=== PATIENT | male | born 1955 | race Caucasian/White ===

== ENCOUNTER → 2016-11-19 | Outpatient (CLI) | payer BC ==
[~2016-11-19] MED LIST: ADVIN25/60 INH; ASCO1CAP3 PO; ASPI81TA28 PO; CRS10 PO; ENAL1TAB31 PO; IPRA1AER2 INH; METO-551 PO; NITR0.4S UT; OXYC-57 PO; XRL10 PO
--- NOTE | 2016-11-19 08:59 | DIAGNOSTIC IMAGING REPORT ---
(BARIUM SWALLOW) ESOPHAGUS CLINICAL HISTORY: DYSPHAGIAdyspnea COMPARISON STUDY: None FLUOROSCOPY TIME: 1.1 minutes. FINDINGS: Patient initiated swallowing function well. Esophagus shows mild esophageal irritability. There is a small hiatal hernia. There is mild gastroesophageal reflux. Patient ingested the barium tablet easily read IMPRESSION: Mild esophageal irritability and/or spasm. Small hiatal hernia with mild reflux. Electronically signed by: Terrell Denis M.D. 11/19/2016 8:58 AM Dictated Date/Time: 11/19/2016 8:57 AM
== END | disposition home or self-care (01) ==
LOC: C.RAD 08:33
PROVIDERS: ATTEND Internal Medicine
DX: R13.10 Dysphagia, unspecified (principal)

== ENCOUNTER → 2016-12-20 | Outpatient (CLI) | payer BC ==
[2016-12-20 13:00] LABS: BASO % 0.1 %; BASO ABS # 0.01 K/uL (0-0.2); COMPLETE YES; EOS % 0.1 %; HEMATOCRIT 42.4 % (42-52); IG% 0.2 %; LYMPH ABS # 0.94 K/uL (1.2-3.4); MEAN CELL VOLUME 95.7 fL (80-100); MEAN CORPUSCULAR HEMOGLOBIN 33.4 pg (25-34); MEAN CORPUSCULAR HGB CONC 34.9 g/dl (32-36); MONO % 6.6 %; PLATELET COUNT 136 K/uL (130-400); RED BLOOD COUNT 4.43 M/uL (4.7-6.1)
[2016-12-20 14:29] LABS: LYME DISEASE AB IGG NEG (NEG)
[2016-12-20 14:32] LABS: LYME DISEASE AB IGM NEG (NEG)
[2016-12-20 15:38] LABS: ALKALINE PHOSPHATASE 54 U/L (45-117); ALT/SGPT 168 U/L (12-78); AST/SGOT 289 U/L (15-37); BLOOD UREA NITROGEN 12 mg/dl (7-18); BUN/CREATININE RATIO 10.4 (10-20); CALCIUM 8.3 mg/dl (8.5-10.1); CARBON DIOXIDE 28 mmol/L (21-32); CHLORIDE 95 mmol/L (98-107); GLUCOSE 123 mg/dl (70-99); POTASSIUM 4.1 mmol/L (3.5-5.1); SODIUM 131 mmol/L (136-145)
[2016-12-20 15:48] LABS: ALB/GLOB RATIO 0.7 (0.9-2)
== END | disposition home or self-care (01) ==
LOC: C.LABSPEC 12:16
PROVIDERS: ATTEND Internal Medicine
DX: I25.10 Atherosclerotic heart disease of native coronary artery without angina pectoris (principal); I10 Essential (primary) hypertension; R53.83 Other fatigue; R63.4 Abnormal weight loss; J40 Bronchitis, not specified as acute or chronic; M25.50 Pain in unspecified joint; M79.1 Myalgia

== ENCOUNTER → 2016-12-20 | Outpatient (CLI) | payer BC ==
--- NOTE | 2016-12-20 12:05 | DIAGNOSTIC IMAGING REPORT ---
TWO VIEW CHEST CLINICAL HISTORY: Bronchitis. COPD. FINDINGS: PA and lateral chest radiographs are compared to chest x-ray and chest CT dated 03/14/2015. The cardiomediastinal silhouette is unremarkable. There is mild atherosclerotic calcification of the thoracic aorta. Emphysema and chronic interstitial thickening are similar to previous. There is dense consolidation in the right upper lobe typical appearance for pneumonia. The left lung appears clear. No pleural effusion is identified. Bilateral nipple shadows are observed. There is no pneumothorax. The bony thorax appears intact. IMPRESSION: 1. There is dense right upper lobe consolidation typical in appearance for pneumonia. Clinical correlation will be required and radiographic follow-up to resolution is recommended. 2. The left lung appears clear. 3. Emphysema. Electronically signed by: Jhonatan Peterson M.D. 12/20/2016 12:04 PM Dictated Date/Time: 12/20/2016 12:01 PM
== END | disposition home or self-care (01) ==
LOC: C.RAD 11:39
PROVIDERS: ATTEND Internal Medicine
DX: J44.9 Chronic obstructive pulmonary disease, unspecified (principal); J40 Bronchitis, not specified as acute or chronic; J43.9 Emphysema, unspecified

== ENCOUNTER → 2016-12-25 | Outpatient (CLI) | payer BC ==
[2016-12-25 15:23] LABS: BASO % 0.3 %; BASO ABS # 0.03 K/uL (0-0.2); COMPLETE YES; EOS % 3.4 %; HEMATOCRIT 41.7 % (42-52); IG% 0.3 %; LYMPH % 15.9 %; LYMPH ABS # 1.65 K/uL (1.2-3.4); MEAN CELL VOLUME 95.9 fL (80-100); MEAN CORPUSCULAR HEMOGLOBIN 32.6 pg (25-34); MEAN CORPUSCULAR HGB CONC 34.1 g/dl (32-36); MEAN PLATELET VOLUME 10.6 fL (7.4-10.4); NEUT % 71.1 %; PLATELET COUNT 271 K/uL (130-400); RED BLOOD COUNT 4.35 M/uL (4.7-6.1); WHITE BLOOD COUNT 10.41 K/uL (4.8-10.8)
[2016-12-25 15:30] LABS: ALT/SGPT 303 U/L (12-78); AST/SGOT 157 U/L (15-37); BLOOD UREA NITROGEN 13 mg/dl (7-18); BUN/CREATININE RATIO 14.3 (10-20); CALCIUM 8.8 mg/dl (8.5-10.1); CARBON DIOXIDE 28 mmol/L (21-32); CHLORIDE 101 mmol/L (98-107); CREATININE 0.91 mg/dl (0.60-1.40); GLUCOSE 124 mg/dl (70-99); SODIUM 138 mmol/L (136-145)
[2016-12-25 15:33] LABS: ALB/GLOB RATIO 0.7 (0.9-2); ALKALINE PHOSPHATASE 101 U/L (45-117)
== END | disposition home or self-care (01) ==
LOC: C.LABSPEC 14:52
PROVIDERS: ATTEND Internal Medicine
DX: J18.9 Pneumonia, unspecified organism (principal); M62.82 Rhabdomyolysis

== ENCOUNTER → 2016-12-25 | Outpatient (CLI) | payer BC ==
--- NOTE | 2016-12-25 16:34 | DIAGNOSTIC IMAGING REPORT ---
CHEST 2 VIEWS ROUTINE CLINICAL HISTORY: PNEUMONIA pneumonia COMPARISON STUDY: 12/20/2016 FINDINGS: Mild improvement of the patient's right upper lobe infiltrate. Improving consolidative change. Moderate residual. Graph left lung remains clear. A small calcified granulomas identified lateral aspect left midlung. IMPRESSION: Improving right upper lobe infiltrate. Moderate residual. Follow-up to complete resolution is suggested. Electronically signed by: Terrell Denis M.D. 12/25/2016 4:33 PM Dictated Date/Time: 12/25/2016 4:32 PM
== END | disposition home or self-care (01) ==
LOC: C.RAD 16:08
PROVIDERS: ATTEND Internal Medicine
DX: J18.9 Pneumonia, unspecified organism (principal)

== ENCOUNTER → 2017-01-08 | Outpatient (CLI) | payer BC ==
--- NOTE | 2017-01-08 16:35 | DIAGNOSTIC IMAGING REPORT ---
ART DOP LOWER EXT BILAT CLINICAL HISTORY: ISCHEMIA RIGHT LEG COMPARISON STUDY: None. FINDINGS: The right common femoral artery is completely occluded proximally with soft plaque. There is large area of calcified plaque within the distal right common femoral artery also resulting in the complete occlusion. However, there is low velocity monophasic waveforms seen throughout the remaining right lower extremity arterial system including the superficial and deep femoral arteries. Normal velocity triphasic waveforms seen throughout the left lower extremity arterial system. The right ankle-brachial index measured between 0.38 and 0.51. The left ankle-brachial index measured between 0.96-1.01. The proximal right external iliac artery is patent. The distal right external iliac is also occluded. IMPRESSION: 1. Occlusion of the distal right external iliac artery and common femoral artery with reconstitution at the right superficial/deep femoral arteries. 2. Normal left lower extremity arterial Doppler study. Electronically signed by: Levi Wheat M.D. 01/08/2017 4:48 PM Dictated Date/Time: 01/08/2017 4:31 PM
== END | disposition home or self-care (01) ==
LOC: C.ULTR 14:33
PROVIDERS: ATTEND Internal Medicine
DX: I99.8 Other disorder of circulatory system (principal); I74.5 Embolism and thrombosis of iliac artery; I74.8 Embolism and thrombosis of other arteries

== ENCOUNTER → 2017-01-14 | Outpatient (CLI) | payer BC ==
[~2017-01-14] MED LIST changes: +OPTIRAY 320 IV PRN
--- NOTE | 2017-01-14 15:25 | DIAGNOSTIC IMAGING REPORT ---
CT ANGIOGRAPHY OF THE ABDOMEN AND PELVIS WITH AND WITHOUT CONTRAST CLINICAL HISTORY: Atherosclerosis. Right iliac occlusion. TECHNIQUE: Unenhanced and arterial phase imaging of the abdomen and pelvis was performed. Injection of 119 cc of Optiray 320 IV was uneventful. Sagittal and coronal reconstructions were viewed as well as maximal intensity projections on an independent 3-D workstation. COMPARISON STUDY: CT of the abdomen and pelvis March 14, 2015 and lower extremity arterial Doppler ultrasound January 08, 2017. FINDINGS: Visualized portions of the lower chest demonstrate numerous small segmental pulmonary emboli within both lower lobes. Arterial phase images of the liver, spleen, adrenal glands, kidneys and pancreas are unremarkable. There is no evidence for a bowel obstruction. There is extensive atherosclerotic plaque of the aortoiliac system. Note is made of a 3.6 x 3.2 cm infrarenal abdominal aortic aneurysm which has slightly increased in size since CT of March 14, 2015 when it measured 3.4 x 3 cm. There is extensive eccentric mural plaque. Aneurysmal dilatation begins 3.2 cm inferior to the left renal artery. Aneurysmal dilatation extends for 4.4 cm. The bilateral renal arteries and major mesenteric vessels are patent. There is 40% stenosis of the proximal right common iliac artery. There is occlusion of the proximal right external iliac artery with reconstitution at the level of the proximal right superficial femoral artery. There is 40% narrowing of the left external iliac artery. Skeletal structures are unremarkable. The roof mechanic tomogram demonstrates right upper lobe airspace opacity which appears diminished since exam of December 25, 2016 and favors resolving pneumonia. IMPRESSION: 1. Multiple segmental pulmonary emboli within visualized portions of the bilateral lower lobes. 2. 3.6 x 3.2 cm infrarenal abdominal aortic aneurysm which has only slightly increased in size since CT of March 14, 2015. 3. Occlusion of the proximal right external iliac artery with reconstitution at the level of the proximal right superficial femoral artery. 4. 40% narrowing of the proximal right common iliac artery and 40% narrowing of the left external iliac artery. Electronically signed by: Cristian Winslow M.D. 01/14/2017 3:24 PM Dictated Date/Time: 01/14/2017 3:04 PM
== END | disposition home or self-care (01) ==
LOC: C.CTS 14:08
PROVIDERS: ATTEND Surgery Vascular Surgery
DX: I70.211 Atherosclerosis of native arteries of extremities with intermittent claudication, right leg (principal); I26.99 Other pulmonary embolism without acute cor pulmonale; I71.4 Abdominal aortic aneurysm, without rupture

== ENCOUNTER → 2017-01-14 | Outpatient (CLI) | payer BC ==
[~2017-01-14] MED LIST changes: -OPTIRAY 320 IV PRN
[2017-01-14 19:06] LABS: BASO % 0.3 %; BASO ABS # 0.03 K/uL (0-0.2); COMPLETE YES; EOS % 2.1 %; HEMATOCRIT 42.3 % (42-52); IG% 0.7 %; LYMPH % 32.6 %; LYMPH ABS # 3.42 K/uL (1.2-3.4); MEAN CORPUSCULAR HEMOGLOBIN 32.8 pg (25-34); MEAN CORPUSCULAR HGB CONC 33.8 g/dl (32-36); MONO % 7.4 %; NEUT % 56.9 %; PLATELET COUNT 218 K/uL (130-400); RED BLOOD COUNT 4.36 M/uL (4.7-6.1)
[2017-01-14 19:18] LABS: PROTHROMBIN TIME (PATIENT) 10.7 SECONDS (9.0-12.0)
== END | disposition home or self-care (01) ==
LOC: C.LABSPEC 16:10
PROVIDERS: ATTEND Internal Medicine
DX: I26.99 Other pulmonary embolism without acute cor pulmonale (principal)

== ENCOUNTER → 2017-01-15 | Outpatient (CLI) | payer BC ==
[~2017-01-15] MED LIST changes: -OXYC-57 PO
--- NOTE | 2017-01-15 10:38 | DIAGNOSTIC IMAGING REPORT ---
BILATERAL LOWER EXTREMITY VENOUS DOPPLER CLINICAL HISTORY: BILATERAL PULMONARY EMBOLI COMPARISON STUDY: No previous studies for comparison. TECHNIQUE: Sonography of the deep venous system of the bilateral lower extremities was performed. Compression and augmentation were evaluated. FINDINGS: The right common femoral and superficial femoral veins are patent. There is deep venous thrombus within the right popliteal vein. There is no deep venous thrombus within the left lower extremity. IMPRESSION: 1. Nonocclusive deep venous thrombus within the right popliteal vein. 2. No deep venous thrombus within the left lower extremity. Electronically signed by: Cristian Winslow M.D. 01/15/2017 10:37 AM Dictated Date/Time: 01/15/2017 10:35 AM
== END | disposition home or self-care (01) ==
LOC: C.ULTR 09:58
PROVIDERS: ATTEND Internal Medicine
DX: I26.99 Other pulmonary embolism without acute cor pulmonale (principal); I82.431 Acute embolism and thrombosis of right popliteal vein

== ENCOUNTER 2017-01-23 06:18 | Observation (INO) | payer BC ==
[2017-01-17 10:22] VITALS: BMI 24.0
[~2017-01-23] VITALS: Ht 167.6 cm; Wt 69.5 kg
[2017-01-23] VITALS (8 sets, daily range): BP systolic 107–126; BP diastolic 71–85; PULSE 67–94; TEMP 36.4–37; O2SAT 94–98; Ht 167.6 cm; Wt 69.5 kg
[~2017-01-23 06:18] MED LIST changes: +CEFAZOLIN 1000MG/55 ML D5W IV SCH; +LACTATED RINGER'S 1000ML 1,000 ML IV SCH; +SODIUM CHLORIDE 0.9% 1000ML 1,000 ML IV SCH
--- NOTE | 2017-01-23 06:20 | History and Physical ---
History & Physical Date of Service Jan 23, 2017. History & Physical CC: Severe right leg claudication HPI: Mr. Filiberto Gardiner is a 61-year-old gentleman with a history of COPD, hypertension, hyperlipidemia, coronary artery disease status post NSTEMI, hepatitis C, who is being seen for evaluation of peripheral arterial disease. Mr. Gardiner says that he had pneumonia several weeks ago and was very inactive for approximately 2 weeks. When he was able to be more active again, he began experiencing pain in both of his legs. He attributed his left leg discomfort to graves splints, which has since resolved. Concerning his right lower extremity , he says that he has burning and cramping in his right thigh with approximately 10 minutes of activity. This is extremely bothersome to him. He had difficulty mowing his lawn, which he says is flat and is only able to mow the lawn for approximately 10 minutes. He must stop and rest for 15-20 minutes before his symptoms resolve. He says that this has been going on for approximately 2 weeks. He says that he additionally has pain in his right foot , but is unsure if this is better or worse at night when he is lying flat. He has not had to keep his leg dependent. He says that he is very active at baseline and that this pain in his right leg is extremely bothersome to him. He is, otherwise, feeling well and denies chest pain, shortness of breath, nausea, vomiting, fevers, chills, night sweats. REVIEW OF SYSTEMS: A 12-point review of systems was completed with pertinent positives and negatives as per above. The patient has no known drug allergies. PAST MEDICAL HISTORY: Significant for COPD, hypertension, hyperlipidemia, hepatitis C status post interferon therapy, coronary artery disease status post NSTEMI. PAST SURGICAL HISTORY: Significant for tonsillectomy, cardiac catheterization without stent placement. FAMILY HISTORY: Significant for abdominal aortic aneurysm in the patient's father and coronary artery disease. SOCIAL HISTORY: Significant for smoking. The patient continues to smoke a pack and a half per day for the past 40 years. He does drink alcohol approximately 12 drinks per week. He works in construction. MEDICATIONS: Reviewed and include Combivent, vitamin C, aspirin 81 mg, enalapril, Advair, metoprolol, nitroglycerin sublingual, rosuvastatin. PHYSICAL EXAMINATION: The patient's heart rate is 81 and blood pressure in the left arm is 96/64 and right arm is 100/64. He is awake, alert and appears slightly anxious. He is in no acute distress. His breathing is nonlabored. His neck is supple and trachea is midline. His abdomen is soft, nontender, nondistended. I did not appreciate any pulsatile masses in his abdomen. Bilateral lower extremities are warm and pink. He has a palpable left femoral pulse. I was unable to palpate a right femoral pulse. He has dopplerable AT, PT and peroneal signals on the right foot, which are biphasic to monophasic. The left dorsalis pedis pulse is palpable. Imp Right iliac and common femoral artery occlusion. Plan: Patient is admitted for revascularization of the right lower extremity. I have discussed the risks options and benefits of the procedure with the patient. The patient understands the risks options and benefits and agrees to the procedure.
[2017-01-23] MEDS ORDERED: MIDAZOLAM HCL 1 MG/ML 2ML VIAL ONE (07:01)
[2017-01-23] MEDS ORDERED: KETAMINE HCL INJ 50 MG/ML 10 ML VIAL ONE (07:01)
[2017-01-23] MEDS ORDERED: FENTANYL CITRATE INJ 50 MCG/1 ML 2 ML VIAL ONE ×2 (07:01→10:01)
--- NOTE | 2017-01-23 07:05 | DIAGNOSTIC IMAGING REPORT ---
CHEST 2 VIEWS ROUTINE CLINICAL HISTORY: PREOPERATIVE EXAM COMPARISON STUDY: 12/25/2016 FINDINGS: The cardiac and mediastinal contours remain stable. There are persistent but improving right upper lobe airspace opacities. The left lung is clear. There is no failure. There are no pleural effusions. There is a stable rounded opacity within left midlung zone, likely representing a nipple shadow or granuloma.[ IMPRESSION: Persistent but improving right upper lobe airspace opacities. Continued radiographic follow-up is recommended. Electronically signed by: Asim Cosme M.D. 01/23/2017 7:04 AM Dictated Date/Time: 01/23/2017 7:02 AM
[2017-01-23] MEDS ORDERED: LIDOCAINE HCL 1% 20 ML VIAL ONE (07:13)
[2017-01-23] MEDS ORDERED: THROMBIN 5000 UNITS KIT ONE (07:14)
[2017-01-23] MEDS ORDERED: GELATIN SPONGE SZ 100 ONE (07:15)
--- NOTE | 2017-01-23 07:15 | History & Physical Bridge Note ---
H&P Re-Evaluation Bridge Note: I have examined the patient, reviewed the History & Physical and in the interval since the performance of the History & Physical I have noted the following changes of clinical significance: No changes noted
[2017-01-23] MEDS ORDERED: BUPIVACAINE/EPINEPHRINE 0.5% MPF 1:200,000 10 ML VIAL ONE (07:16)
[2017-01-23] MEDS ORDERED: CEFAZOLIN SOD 1 GM VIAL ONE (07:16)
[2017-01-23] MEDS ORDERED: PAPAVERINE HCL INJ 30 MG/ML 2 ML VIAL ONE (07:17)
[2017-01-23] MEDS ORDERED: HEPARIN SOD (PORCINE) 5000 UNIT/ML 1 ML VIAL ONE (07:20)
[2017-01-23 07:27] LABS: BUN/CREATININE RATIO 20.3 (10-20); CALCIUM 9.3 mg/dl (8.5-10.1); CREATININE 0.72 mg/dl (0.60-1.40); POTASSIUM 4.6 mmol/L (3.5-5.1)
[2017-01-23] MEDS ORDERED: HEPARIN SOD (PORCINE) 1000 UNIT/ML 10 ML VIAL ONE ×2 (07:28→09:04)
[2017-01-23] MEDS ORDERED: PROPOFOL IV EMULSION 10 MG/ML 20 ML VIAL IV ONE (08:57)
[2017-01-23] MEDS ORDERED: DEXAMETHASONE SOD INJ 4 MG/ML VIAL ONE (08:57)
[2017-01-23] MEDS ORDERED: CISATRACURIUM BESYLATE IV SOLN 2 MG/ML 10 ML VIAL ONE (08:57)
[2017-01-23] MEDS ORDERED: ONDANSETRON INJ 2 MG/ML 2 ML VIAL ONE (08:57)
[2017-01-23] MEDS ORDERED: EpHEDrine SULFATE 50MG/5ML SYR ONE (08:57)
[2017-01-23] MEDS ORDERED: LIDOCAINE HCL 2% 2 ML VIAL (20MG/ML) ONE (08:57)
[2017-01-23] MEDS ORDERED: GLYCOPYRROLATE INJ 0.2 MG/ML VIAL ONE (09:00)
[2017-01-23] MEDS ORDERED: NEOSTIGMINE METHYLSULFATE 5 MG/5 ML SYR ONE (09:00)
[2017-01-23] MEDS ORDERED: PHENYLEPHRINE HCL INJ 10 MG/ML VIAL ONE (10:02)
[2017-01-23] MEDS ORDERED: D5W AND 1/2NSS 1,000 ML IV SCH (10:56)
--- NOTE | 2017-01-23 10:59 | [facility] Post Operative Brief Note ---
Immediate Operative Summary Operative Date Jan 23, 2017. Pre-Operative Diagnosis Right iliac and femoral artery occlusion Post-Operative Diagnosis Right iliac and femoral artery occlusion Procedure(s) Performed Bilateral Iliac Stent, Mechanical Artherectomy Right External Iliac Artery, Endarterectomy and Patch of Right Common Femoral Artery Surgeon Navneet Director Field Services Surgeon(s) none Estimated Blood Loss 100CC Findings good pedal dopplers on right Specimens None per surgeon Anesthesia Gen Complication(s) None Disposition Recovery Room / PACU
[2017-01-23] MEDS ORDERED: IPRATROPIUM BROMIDE/ALBUTEROL respimat INH INH PRN (11:00)
[2017-01-23] MEDS ORDERED: MoRPHine SULFATE 2 MG/ML CARP IV PRN (11:00)
[2017-01-23] MEDS ORDERED: ACETAMINOPHEN 325 MG TAB PO PRN (11:00)
[2017-01-23] MEDS ORDERED: NITROGLYCERIN 0.4 MG SL PER TAB CHARGE UT PRN (11:00)
[2017-01-23] MEDS ORDERED: ONDANSETRON INJ 2 MG/ML 2 ML VIAL IV PRN ×2 (11:00→11:30)
[2017-01-23] MEDS ORDERED: IV FLUIDS COMPLETED PRN (11:15)
[2017-01-23] MEDS ORDERED: ESMOLOL HCL 10 MG/ML 10 ML VIAL ONE (11:22)
[2017-01-23] MEDS ORDERED: LABETALOL HCL IV 5 MG/ML 20ML IV ONE (11:22)
[2017-01-23 11:30] LABS: BASO % 0.1 %; BASO ABS # 0.01 K/uL (0-0.2); COMPLETE YES; EOS % 0.6 %; HEMATOCRIT 38.9 % (42-52); IG% 0.6 %; LYMPH % 8.6 %; LYMPH ABS # 1.19 K/uL (1.2-3.4); MEAN CELL VOLUME 95.8 fL (80-100); MEAN CORPUSCULAR HGB CONC 33.4 g/dl (32-36); MEAN PLATELET VOLUME 8.9 fL (7.4-10.4); MONO % 1.3 %; NEUT % 88.8 %; PLATELET COUNT 216 K/uL (130-400); RED BLOOD COUNT 4.06 M/uL (4.7-6.1); WHITE BLOOD COUNT 13.85 K/uL (4.8-10.8)
[2017-01-23] MEDS ORDERED: HYDROmorphone INJ 1 MG/ML SYR IV PRN (11:30)
[2017-01-23] MEDS ORDERED: FLUMAZENIL 0.1 MG/1 ML 10 ML VIAL IV PRN (11:30)
[2017-01-23] MEDS ORDERED: EpHEDrine SULFATE INJ 50 MG/ML AMP IV PRN (11:30)
[2017-01-23] MEDS ORDERED: ATROPINE SULFATE 0.1 MG/ML 5ML SYR IV PRN (11:30)
[2017-01-23] MEDS ORDERED: PROMETHAZINE HCL INJ 12.5 MG in SODIUM CHLORIDE 0.9% 50ML 50 ML IV PRN (11:30)
[2017-01-23] MEDS ORDERED: NALOXONE HCL 0.4 MG/1 ML VIAL/CARP IV PRN (11:30)
[2017-01-23] MEDS ORDERED: LABETALOL HCL IV 5 MG/ML 20ML IV PRN (11:30)
--- NOTE | 2017-01-23 11:30 | [facility] Operative Report ---
Operative Report Operative Date Jan 23, 2017. Pre-Operative Diagnosis Right external iliac and femoral artery occlusion Post-Operative Diagnosis Same Procedure(s) Performed Bilateral common iliac stent insertion Right external iliac mechanical atherectomy Right common femoral endarterectomy with patch Mechanical closure right common femoral artery Bilateral cannulation of the aorta Surgeon Navneet Speech Professor Surgeon(s) none Estimated Blood Loss 100CC Findings Occluded right ext iliac and common femoral arteries Specimens None per surgeon Anesthesia Gen Complication(s) None Disposition Recovery Room / PACU Description of Procedure Procedure indications: This patient's a 61-year-old male whose developed severe claudication of the right lower extremity. This is limiting his daily activity and is severe at short distances. CT scan done showed a right external iliac and common femoral artery occlusions. It was recommended that we attempt an endovascular approach to treat the right external iliac artery and possibly a femoral patch angioplasty and endarterectomy. If this does not work then we would go ahead and do a cross femoral bypass. I have discussed the risks options and benefits of the procedure with the patient. The patient understands the risks options and benefits and agrees to the procedure. Procedure: Patient was taken to operating room and placed in the supine position. After both groins are prepped and draped in a sterile manner, a percutaneous puncture was made of the left common femoral artery. An 035 wire was then inserted. A 5 Citizen [place] sheath was inserted over the wire. Next an incision was made in the right groin. This was carried down to where the common femoral arteries were identified. Dissection was carried down beyond the bifurcation of the common femoral artery and to the inguinal ligament. The common femoral artery itself had no pulse and was extremely hard. Once the common femoral artery was exposed and a puncture was made of the common femoral artery, a 6 Citizen [place] sheath was inserted over the wire. Using an 035 wire the right external iliac artery was actually crossed . The wire passed into into the aorta without too much difficulty. A 5 [place] sheath was inserted over the wire. The wire was removed and an angled guide catheter inserted. A hand injection was done showing the catheter to be true lumen in the abdominal aorta. There was a mild stenosis of the left common iliac artery and moderate stenosis of the right common iliac artery. There is also a complete occlusion of the right external iliac artery and common femoral artery. The sheath of the left groin was then exchanged for a 6 [place] sheath. A wire was then inserted through the left femoral artery and passed into the aorta. A snare catheter was then inserted over the wire. A snare was then inserted. The wire from the right side was snared and brought out through the left groin. This was an O35 wire. We then passed an 8 [place] destination sheath over the wire and used the wire as a rail. The destination was passed to the right common iliac artery. We then exchanged the 035 wire to an 014 jet wire. A 2.4 mechanical atherectomy Jetstream device was then used. The jetstream was then passed over the 014 wire to the right external iliac artery origin. Two passes were done, one with blades down and one with blades up. There was a good result seen in the external iliac artery and the proximal common femoral artery. It was then thought that we could do a common femoral artery endarterectomy with a patch angioplasty. We then inserted the stents into the common iliac arteries. We placed a 9 x 29 and the left common iliac and a 9 x 39 the right common iliac artery. A hand infection showed a crimp in the right common iliac stent at the distal end. Multiple attempts to try to get a wire through this so we can pass a balloon to open up the stent further cannot be done. We then were going to try to cover the stent with two covered stents to exclude the stent and crushed against the wall. A wire was then inserted through the right groin. This was passed up along the side of the previously placed stent. At that point we passed a 9 x 30 Icast stent. The stent was then expanded crushing the original stent against the wall of the artery. We then placed a 10 x 5cm Viabahn stent beyond this and overlapping Icast stent. This was then ballooned with a 12 mm balloon. Good results were seen. There is good flow through the external and internal iliac arteries. That point we removed the destination over a wire and exchanged to a short 8 [place] short sheath. The right superficial femoral and profunda femoral arteries were clamped. A clamp was then placed on the distal external iliac artery below the inguinal ligament and the above the area that had a pulse present. A longitudinal arteriotomy was then made in the common femoral artery. There was a large amount of plaque creating a complete occlusion of the common femoral artery. Using the endarterectomy spatula, the endarterectomy was started at the proximal part of the arteriotomy. The plaque was removed in its entirety. The origins of the superficial femoral and profunda were patent. The arteriotomy extended down beyond the origin of the superficial femoral artery for approximately 1 cm. A #4 saundra catheter was passed proximally into the external iliac artery. There was no clot present and excellent flow was seen when it was flushed. An AcuSeal patch was then used to patch the arteriotomy. This was closed in usual fashion using a running CV 6 Hymera-Ian suture in usual vascular fashion. Prior to completing the closure backbleeding and forebleeding was allowed to occur. The final few sutures were placed and securely tied. The clamps were removed from the profunda and common femoral artery finally the superficial femoral artery clamp was removed. Acceptable hemostasis was then noted. There was one bleeding site seen and this was controlled with an interrupted CV 6 Hymera-Ian suture. Adequate hemostasis was then noted. The wound was inspected and hemostasis was seen of the wound. The wound was then closed in usual fashion using running 2-0 Vicryl suture for the femoral sheath and a 3-0 Vicryl sutures for the subcutaneous layer. Radiant were used for the skin. Sterile dressings were applied to the wound. Patient had excellent Doppler signals in both the dorsalis pedis and posterior tibial arteries at the end of the procedure. Sponge and needle count were correct at the end of the case. The patient left the operating room in satisfactory condition tolerated procedure well. I attest to the content of the Intraoperative Record and any orders documented therein. Any exceptions are noted below.
[2017-01-23] MEDS ORDERED: HYDROmorphone INJ 1 MG/ML SYR ONE (11:35)
--- NOTE | 2017-01-23 11:58 | Anesthesiology Progress Note ---
Anesthesia Post Op Note Date & Time Jan 23, 2017 at 11:56 Vital Signs Pain Intensity: 6.0 Vital Signs Past 12 Hours Date Time Temp Pulse Resp B/P (MAP) Pulse Ox O2 Delivery O2 Flow Rate FiO2 01/23/17 11:40 88 18 98/66 95 Oxymask 3 101/57 01/23/17 11:30 83 18 102/67 95 Oxymask 3 113/58 01/23/17 11:20 79 18 103/69 96 Oxymask 10 109/58 01/23/17 11:10 83 16 104/72 96 Oxymask 10 113/60 01/23/17 11:03 36.7 83 16 108/66 97 Oxymask 10 01/23/17 06:41 37 72 20 107/75 98 Room Air Notes Mental Status: alert / awake / arousable, participated in evaluation Pt Amnestic to Procedure: Yes Nausea / Vomiting: adequately controlled Pain: adequately controlled Airway Patency, RR, SpO2: stable & adequate BP & HR: stable & adequate Hydration State: stable & adequate Anesthetic Complications: no major complications apparent
[2017-01-23] MEDS ORDERED: MoRPHine SULFATE 4 MG/ML 1 ML CARP\\VIAL IV PRN (13:30)
[2017-01-23] MEDS: OXYCODONE/ACETAMINOPHEN 5-325 TAB PO PRN ×2 (16:19→19:46)
[2017-01-23] MEDS: CEFAZOLIN IV 1,000 MG in DEXTROSE 5% 50ML 50 ML IV SCH ×2 (16:35→23:45)
[2017-01-23] MEDS: RIVAROXABAN TAB 15 MG TAB PO SCH (16:35)
[2017-01-23] MEDS: FLUTICASONE/SALMETEROL 250/50 (ADVAIR) 14 PUFF/1 INHALER INH SCH (19:46)
[2017-01-23] MEDS: METOPROLOL TARTRATE 50 MG TAB PO SCH (19:47)
[2017-01-23] MEDS ORDERED: ROSUVASTATIN CALCIUM 10 MG TAB PO SCH (21:00)
[2017-01-24 07:06] LABS: BASO % 0.1 %; BASO ABS # 0.01 K/uL (0-0.2); COMPLETE YES; EOS % 0.1 %; HEMATOCRIT 36.2 % (42-52); IG% 0.3 %; LYMPH % 14.9 %; LYMPH ABS # 2.38 K/uL (1.2-3.4); MEAN CORPUSCULAR HEMOGLOBIN 32.4 pg (25-34); MEAN CORPUSCULAR HGB CONC 33.7 g/dl (32-36); MEAN PLATELET VOLUME 8.8 fL (7.4-10.4); MONO % 8.8 %; NEUT % 75.8 %; PLATELET COUNT 199 K/uL (130-400); RED BLOOD COUNT 3.77 M/uL (4.7-6.1); WHITE BLOOD COUNT 15.98 K/uL (4.8-10.8)
[2017-01-24] MEDS: FLUTICASONE/SALMETEROL 250/50 (ADVAIR) 14 PUFF/1 INHALER INH SCH (07:18)
[2017-01-24] MEDS: RIVAROXABAN TAB 15 MG TAB PO SCH (07:18)
[2017-01-24] MEDS: METOPROLOL TARTRATE 50 MG TAB PO SCH (07:18)
[2017-01-24] MEDS: OXYCODONE/ACETAMINOPHEN 5-325 TAB PO PRN (07:23)
[2017-01-24 07:36] LABS: CALCIUM 8.7 mg/dl (8.5-10.1); CREATININE 0.77 mg/dl (0.60-1.40)
[2017-01-24 07:38] VITALS: BP 155/84; PULSE 75; TEMP 36.8; O2SAT 95
[2017-01-24 08:32] VITALS: O2SAT 95
[2017-01-24] MEDS ORDERED: ENALAPRIL MALEATE 10 MG TAB PO SCH (09:00)
[2017-01-24] MEDS ORDERED: ASPIRIN 81 MG ECTAB PO SCH (09:00)
[2017-01-24] MEDS ORDERED: ASCORBIC ACID 500 MG TAB PO SCH (09:00)
[2017-01-24 10:29] VITALS: BP 102/64; PULSE 66; O2SAT 95
[2017-01-24] MEDS ORDERED: PANTOprazole INJ 40 MG in SYRINGE 0 ML IV SCH (11:00)
[2017-01-24 11:08] VITALS: BP 104/69; PULSE 65; TEMP 36.8; O2SAT 96
[2017-01-24 12:10] VITALS: O2SAT 95
--- NOTE | 2017-01-24 13:53 | Progress Note ---
Progress Note Date of Service: Jan 24, 2017. Subjective No complaints. Ambulating without difficulty. Objective Vital Signs Vital Signs Past 12 Hours Date Time Temp Pulse Resp B/P (MAP) Pulse Ox O2 Delivery O2 Flow Rate FiO2 01/24/17 12:10 95 Room Air 01/24/17 11:08 36.8 65 20 104/69 (81) 96 Room Air 01/24/17 10:29 66 95 01/24/17 08:32 95 Room Air 01/24/17 07:38 36.8 75 20 155/84 (107) 95 Room Air 01/24/17 04:00 Room Air Exam VSS Afebrile Groin incision dry and clean. Left groin puncture site without complications Palpable DP and PT pulse on right Voided after pablo out Laboratory and Microbiology Results Past 24 Hours Test 01/24/17 06:49 Range/Units White Blood Count 15.98 4.8-10.8 K/uL Red Blood Count 3.77 4.7-6.1 M/uL Hemoglobin 12.2 14.0-18.0 g/dL Hematocrit 36.2 42-52 % Mean Corpuscular Volume 96.0 80-100 fL Mean Corpuscular Hemoglobin 32.4 25-34 pg Mean Corpuscular Hemoglobin Concent 33.7 32-36 g/dl Platelet Count 199 130-400 K/uL Mean Platelet Volume 8.8 7.4-10.4 fL Neutrophils (%) (Auto) 75.8 % Lymphocytes (%) (Auto) 14.9 % Monocytes (%) (Auto) 8.8 % Eosinophils (%) (Auto) 0.1 % Basophils (%) (Auto) 0.1 % Neutrophils # (Auto) 12.11 1.4-6.5 K/uL Lymphocytes # (Auto) 2.38 1.2-3.4 K/uL Monocytes # (Auto) 1.41 0.11-0.59 K/uL Eosinophils # (Auto) 0.02 0-0.5 K/uL Basophils # (Auto) 0.01 0-0.2 K/uL RDW Standard Deviation 48.2 36.4-46.3 fL RDW Coefficient of Variation 13.7 11.5-14.5 % Immature Granulocyte % (Auto) 0.3 % Immature Granulocyte # (Auto) 0.05 0.00-0.02 K/uL Sodium Level 140 136-145 mmol/L Potassium Level 4.0 3.5-5.1 mmol/L Chloride Level 108 98-107 mmol/L Carbon Dioxide Level 25 21-32 mmol/L Anion Gap 7.0 3-11 mmol/L Blood Urea Nitrogen 12 7-18 mg/dl Creatinine 0.77 0.60-1.40 mg/dl Est Creatinine Clear Calc Drug Dose 93.2 ml/min Estimated GFR () 115.1 Estimated GFR (Non- 99.3 BUN/Creatinine Ratio 16.0 10-20 Random Glucose 116 70-99 mg/dl Calcium Level 8.7 8.5-10.1 mg/dl Imp: Post revasc right leg Plan: Doing well D/c today
[2017-01-24] MEDS ORDERED: OXYC-57 PO (13:54)
--- NOTE | 2017-01-24 13:55 | Discharge Instructions ---
Discharge Instructions Date of Service Jan 24, 2017. Admission Reason for Admission: Peripheral Artery Disease W/Claudication Discharge Discharge Diagnosis / Problem: Right external iliac and common femoral artery occlusion Discharge Goals Goal(s): Therapeutic intervention Activity Recommendations Activity Limitations: per Instructions/Follow-up section Lifting Limitations: no more than 25 pounds Exercise/Sports Limitations: gradually increase as tolerated May Resume Sexual Activity: when tolerated Shower/Bathe: tomorrow Driving or Machine Use: resume 3 days after discharge . Instructions / Follow-Up Instructions / Follow-Up ACTIVITY RECOMMENDATIONS: See Above SPECIAL CARE INSTRUCTIONS: Call your doctor if: * Temperature above 101 degrees * Pain not relieved by pain medicine ordered * There is increased drainage or redness from any incision * You have any unanswered questions or concerns. Current Hospital Diet Patient's current hospital diet: AHA Diet (Heart Healthy) Discharge Diet Recommended Diet: AHA Diet (Heart Healthy) Procedures Procedures Performed: Bilateral Iliac Stent, Mechanical Artherectomy Right External Iliac Artery, Endarterectomy and Patch of Right Common Femoral Artery Pending Studies Studies pending at discharge: no Medical Emergencies . Who to Call and When: Medical Emergencies: If at any time you feel your situation is an emergency, please call 911 immediately. . Non-Emergent Contact Non-Emergency issues call your: Surgeon . "Provider Documentation" section prepared by Manolo Toth. . VTE Core Measure Inpt VTE Proph given/why not?: Other Anticoagulation
[2017-01-24 14:12] VITALS: BP 104/69; PULSE 65; TEMP 36.8; O2SAT 95
--- NOTE | 2017-01-25 10:10 | Discharge Summary ---
Discharge Summary Date of Service Jan 25, 2017. Admission Date/Reason Jan 23, 2017 at 11:04 Peripheral Artery Disease W/Claudication. Discharge Date/Disposition Jan 24, 2017 Home Diagnosis Principal Diagnosis: s/p R femoral endarterectomy and Bilateral iliac artery [employer]/stent and mechanical atherectomy R external iliac artery, aortoiliac occlusive disease Secondary Diagnoses/Problems: PAD with claudication Procedure(s) Performed R common femoral artery endarterectomy with patch and bilateral iliac artery stenting and mechanical atherectomy R external iliac artery Vaccinations NONE Consultations NONE Medication Reconciliation New Medications: Oxycodone/Acetaminophen 5MG/325MG (Percocet 5MG/325MG) Tab 2 TABLETS PO Q4H PRN for Pain, #30 TAB Continued Medications: Ascorbic Acid (Vitamin C) 500 Mg Cap 500 MG PO QAM Aspirin (Aspirin Ec) 81 Mg Tab 81 MG PO QAM PER PT OK WITH SURGEON TO CONTINUE Enalapril Maleate (Vasotec) 20 Mg Tab 20 MG PO QAM, TAB Fluticasone Prop/Salmeterol (Advair Diskus 250/50 60 Dose) 1 Ea Aerp 1 PUFF INH BID, INHALER Ipratropium-Albuterol (Combivent Respimat) 1 Aer Aer 1 PUFF INH QID PRN for PRN, INH Metoprolol Tartrate (Lopressor) 50 Mg Tab 50 MG PO BID, TAB Nitroglycerin (Nitrostat) 0.4 Mg Sub 0.4 MG UT UD PRN for Chest Pain, BTL PLACE ONE TABLET UNDER THE TONGUE EVERY 5 MINUTES FOR UP TO 3 DOSES IF NEEDED FOR CHEST PAIN. Rivaroxaban (Xarelto) 10 Mg Tab 15 TAB PO BID for 7 Days, #210 TAB PER PT OK WITH SURGEON TO CONTINUE Rosuvastatin Calcium (Crestor) 10 Mg Tab 10 MG PO QPM Admission Physical Exam As per Admitting History & Physical. Hospital Course Pt admitted after undergoing R common femoral endarterectomy and bilateral iliac artery [employer]/stent and mechanical atherectomy of R external iliac artery, which was performed without complications and EBL of 100cc. Did well postop. Ambulating well with mild discomfort at surgical site. States claudication resolved. Incision C/D/I, puncture without erythema, ecchymosis or edema or drainage. Palpable pulses post op day 1. Voiding and taking PO well. Stable for d/c post op day 1. Discharge Instructions Please refer to the electronic Patient Visit Report (Discharge Instructions) for additional information.
== END 2017-01-24 14:31 | disposition home or self-care (01) ==
LOC: C.ACU 06:18 → C.2T 11:04 → ENRESERV 11:35
PROVIDERS: ADMIT Surgery Vascular Surgery; ATTEND Surgery Vascular Surgery
DX: I73.9 Peripheral vascular disease, unspecified (principal); J44.9 Chronic obstructive pulmonary disease, unspecified; I10 Essential (primary) hypertension; E78.5 Hyperlipidemia, unspecified; I25.10 Atherosclerotic heart disease of native coronary artery without angina pectoris; I25.2 Old myocardial infarction; Z79.82 Long term (current) use of aspirin; Z86.19 Personal history of other infectious and parasitic diseases; Z82.49 Family history of ischemic heart disease and other diseases of the circulatory system